=== PATIENT | female | born 1960 | race Caucasian/White ===

== ENCOUNTER 2017-06-30 17:36 | Emergency (ER) | payer BC ==
[2017-06-30 17:46] VITALS: BP 140/96
--- OUTSIDE RECORDS SUMMARY | 2017-06-30 18:00 | XMS REPORT ---
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 [address] [place] [id number] Medigap Part B Effective: Policy Number: [employer] Roxana Mcguire 04/29/2016 [id number] Group Name: Essential Plan 2 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 Cigarette Use Never Smoked Cigarettes ETOH Use Currently consumes alcohol 7-10 large glasses of wine weekly, about 1/2 bottle nightly Recreational Drug Use Never Used Drugs Exercise Type/Frequency Yoga Allergies, Adverse Reactions, Alerts Date Description Reaction Status Severity Comments 06/24/2016 NKDA active Medications Medication Date Status Form Strength Qnty SIG Indications Ordering Provider Methimazole Active Tablets 5mg 90tabs 3 tab by Kaiser 8 mouth [place], daily Vitamin C Active Unknown 0 Methimazole Hx Tablets 5mg 3 tab by Kaiser 5 - mouth [place], daily 6 Medications Administered in Office Medication Date Status Form Strength Qnty SIG Indications Ordering Provider TB,Intradermal Administered Injection Lab and (PPD, [place]) 018 Office Services Immunizations CPT Code Status Date Vaccine Lot # [id number] Refused 06/24/2016 Tdap (Adacel) [id number] Refused 06/24/2016 Influenza Virus Vaccine, 3 Yrs And Above Vital Signs Date Vital Result Comment 06/10/2017 Weight 127.00 lb Weight in kg's 57.607 BP Systolic 116 mmHg BP Diastolic 78 mmHg Heart Rate 64 /min Body Temperature 98.4 F Respiratory Rate 16 /min O2 % BldC Oximetry 98 % 06/24/2016 Weight 121.00 lb Weight in kg's 54.886 BP Systolic 120 mmHg BP Diastolic 68 mmHg Heart Rate 84 /min Body Temperature 98.4 F Respiratory Rate 20 /min Height 64 inches 5'4" BMI (Body Mass Index) 20.8 kg/m2 01/29/2016 Weight 134.00 lb Weight in kg's 60.782 BP Systolic 118 mmHg BP Diastolic 66 mmHg Heart Rate 76 /min Body Temperature 97.9 F Respiratory Rate 16 /min Height 64.5 inches 5'4.50" BMI (Body Mass Index) 22.6 kg/m2 07/01/2015 Weight 143.00 lb Weight in kg's 64.865 BP Systolic 116 mmHg BP Diastolic 70 mmHg Heart Rate 68 /min Body Temperature 97.5 F 12/31/2014 Weight 150.00 lb Weight in kg's 68.040 BP Systolic 110 mmHg BP Diastolic 68 mmHg Heart Rate 68 /min Height 64.5 inches 5'4.50" BMI (Body Mass Index) 25.3 kg/m2 Results Test Date Test Result H/L Range Note Laboratory test 06/11/2017 Vitamin D Total <pending> finding 25(Oh) Laboratory test 06/11/2017 T3 Total 1.31 ng/mL 0.87-1.78 1 finding Free T4 (Free Thyroxine) 1.53 ng/dL High 0.61-1.12 2 TSH (Thyroid Stim Horm) 0.02 mcIU/mL Low 0.34-5.60 3 Vitamin D Total 25(Oh) 60.9 ng/mL High 20-50 4 Laboratory test finding 02/12/2016 T3 Total 0.79 ng/mL Low 0.87-1.78 Free T4 (Free Thyroxine) 0.97 ng/dL 0.61-1.12 TSH (Thyroid Stimulating Horm) 0.73 mcIU/mL 0.34-5.60 1 [id number] 2 [id number] 3 [id number] 4 [id number] Procedures Description No Information Encounters Type Date Location Provider CPT E/M Dx Office Visit 06/24/2016 2:15p [place] [address] Z00.8 R32 K30 E44.1 E05.00 Office Visit 01/29/2016 2:45p [place] [address] D39.12 E05.00 Office Visit 07/01/2015 10:00a [place] [address] M25.512 Office Visit 12/31/2014 4:00p [place] [address] M54.5 F43.20 E05.00 Plan of Care 06/10/2017 - Kaiser Elliott MDE05.00 Thyrotoxicosis w diffuse goiter w/o thyrotoxic crisisComments:She has always treated this according to her own gut instincts rather than best advice from endocrine. She has restarted her methimazole at what seems to her to be the best dosage. We will check her thyroid levels today.Follow up:ALYSIA for well woman
--- OUTSIDE RECORDS SUMMARY | 2017-06-30 18:00 | XMS REPORT ---
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 [address] [place] [address] Medigap Part B Effective: Policy Number: [employer] Roxana Mcguire 04/29/2016 [id number] Group Name: Essential Plan 2 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 Cigarette Use Never Smoked Cigarettes ETOH Use Currently consumes alcohol 7-10 large glasses of wine weekly, about 1/2 bottle nightly Recreational Drug Use Never Used Drugs Exercise Type/Frequency Yoga Allergies, Adverse Reactions, Alerts Date Description Reaction Status Severity Comments 06/24/2016 NKDA active Medications Medication Date Status Form Strength Qnty SIG Indications Ordering Provider Methimazole 06/29/19 Active Tablets 5mg 240tabs 5 tab by Kaiser 18 mouth [place], daily Vitamin C Active Unknown 00 Methimazole 06/11/19 Hx Tablets 5mg 90tabs 3 tab by Kaiser 18 - mouth [place]aggie, 06/29/19 daily 18 Methimazole 01/03/20 Hx Tablets 5mg 3 tab by Kaiser 15 - mouth Tiburcioetmaggie, 07/01/19 daily MD Zambrano Medications Administered in Office Medication Date Status Form Strength Qnty SIG Indications Ordering Provider TB,Intradermal Administered Injection Lab and (PPD, [place]) 018 Office Services Immunizations CPT Code Status Date Vaccine Lot # [id number] Refused 06/24/2016 Tdap (Adacel) [id number] Refused 06/24/2016 Influenza Virus Vaccine, 3 Yrs And Above Vital Signs Date Vital Result Comment 06/28/2017 Weight 123.00 lb Weight in kg's 55.793 BP Systolic 104 mmHg BP Diastolic 62 mmHg Heart Rate 75 /min Body Temperature 98.4 F Respiratory Rate 15 /min Height 64.5 inches 5'4.50" BMI (Body Mass Index) 20.8 kg/m2 O2 % BldC Oximetry 98 % 06/10/2017 Weight 127.00 lb Weight in kg's [...] (Thyroid Stimulating Horm) 0.73 mcIU/mL 0.34-5.60 1 [id number] 2 [id number] 3 [id number] 4 [id number] Procedures Description No Information Encounters Type Date Location Provider CPT E/M Dx Office Visit 06/10/2017 5:00p [place] [address] E05.00 Office Visit 06/24/2016 2:15p [place] [address] Z00.8 R32 K30 E44.1 E05.00 Office Visit 01/29/2016 2:45p [place] [address] D39.12 E05.00 Office Visit 07/01/2015 10:00a [place] [address] M25.512 Office Visit 12/31/2014 4:00p [place] [address] M54.5 F43.20 E05.00 Plan of Care Future Appointment(s):07/05/2017 9:00 am - Kaiser Elliott MD at Main Ari[place]0106/28/2017 - Kaiser Elliott MDE05.00 Thyrotoxicosis w diffuse goiter w/ o thyrotoxic crisisNew Labs:TSH (Thyroid Stim Horm)Free T4 (Free Thyroxine)T3 TotalThyroid AutoantibodiesComments:she continues to use the medication according to her best judgment. She seems to be averaging about 25 mg of methimazole per day.This could be a reasonable for her relatively mild hyperthyroidism. I tried to convince her that we would be better served by keeping her to a stable dosage of the medication, but she disagrees.She is very interested in alternative explanations for disease-systemic Pia,difficulty "processing vitamins", etc. She believes the [employer] is suppressing research that would cure or prevent most disease. this informs her approach to the treatment of most of her ergjzvxsU16.9 Dermatitis, unspecifiedComments:She has eczema visible, especially on her right calf.She appears alarmed when I mention the possibility of trying topical steroids. we discussed the alternate treatment of just trying to moisturize it and hopefully it will go away.
--- NOTE | 2017-06-30 18:27 | UC ---
Skin Complaint HPI - HPI Summary HPI Summary: 56 yo female with pruritic rash x days getting progressively worse has been weeding a 1 1/2 acre garden recent URI no hx DM - History of Current Complaint Chief Complaint: UCRash Time Seen by Provider: 06/30/17 17:50 Stated Complaint: RASH Hx Obtained From: Patient Onset/Duration: Gradual Onset, Lasting Days Timing: Constant Onset Severity: Mild Current Severity: Moderate Pain Intensity: 0 Pain Scale Used: 0-10 Numeric Location: Other - legs>arms/scalp Character: Swelling, Pruritus, Redness, Raised Aggravating Factor(s): Nothing Alleviating Factor(s): Nothing Associated Signs & Symptoms: Positive: Rash - Allergy/Home Medications Allergies/Adverse Reactions: Allergies Allergy/AdvReac Type Severity Reaction Status Date / Time No Known Allergies Allergy Verified 06/30/17 17:46 Home Medications: Home Medications Methimazole TAB* [Tapazole TAB*] 10 mg PO DAILY 06/30/17 [History Confirmed 04/18] Review of Systems Constitutional: Negative Skin: Rash Eyes: Negative ENT: Negative Respiratory: Negative Cardiovascular: Negative Gastrointestinal: Negative Genitourinary: Negative Motor: Negative Neurovascular: Negative Musculoskeletal: Negative Neurological: Negative Psychological: Negative Is Patient Immunocompromised?: No All Other Systems Reviewed And Are Negative: Yes PMH/Surg Hx/FS Hx/Imm Hx Previously Healthy: Yes Endocrine History: Hyperthyroidism - Surgical History Surgical History: None - Family History Known Family History: Positive: None Negative: Hypertension - Social History Alcohol Use: Rare Substance Use Type: None Smoking Status (MU): Never Smoked Tobacco Physical Exam Triage Information Reviewed: Yes Appearance: Well-Appearing, No Pain Distress, Well-Nourished Vital Signs: Initial Vital Signs Temp 97.9 F 06/30/17 17:40 Pulse 72 06/30/17 17:40 Resp 12 06/30/17 17:40 BP 140/96 06/30/17 17:40 Pulse Ox 100 06/30/17 17:40 Vital Signs Reviewed: Yes Eyes: Positive: Conjunctiva Clear ENT: Positive: Hearing grossly normal. Negative: Nasal congestion, Nasal drainage, Trismus, Muffled voice, Hoarse voice Neck: Positive: Supple, Nontender Respiratory: Positive: Lungs clear, Normal breath sounds, No respiratory distress, No accessory muscle use Cardiovascular: Positive: RRR, No Murmur Musculoskeletal: Positive: ROM Intact, No Edema Neurological: Positive: Alert Psychological Exam: Normal Skin: Positive: rashes - c/w contact dermatitis, multiple papules, some in linear arrays, generalized erthema /swelling post legs weeping serum Course/Dx - Diagnoses Provider Diagnoses: contact dermatitis Discharge - Sign-Out/Discharge Documenting (check all that apply): Discharge/Admit/Transfer - Discharge Plan Condition: Stable Disposition: HOME Patient Education Materials: Contact Dermatitis (DC) Referrals: Kaiser Elliott MD [Primary Care Provider] - If Needed - Billing Disposition and Condition Condition: STABLE Disposition: HOME Images Front/Back of Body, Lg ([place]): 1 - weeping 2 - weeping 3 - weeping 4 - weeping
[2017-06-30] MEDS ORDERED: predniSONE TAB* 20 MG PO ONE (18:32)
[2017-06-30] MEDS ORDERED: Triamcinolone Acetonide* 40 MG/ML 1 ML VIAL IM ONE (18:32)
== END 2017-06-30 19:08 | disposition home or self-care (01) ==
LOC: UCEAST 17:36
DX: L25.9 Unspecified contact dermatitis, unspecified cause (principal); E05.90 Thyrotoxicosis, unspecified without thyrotoxic crisis or storm
CPT/HCPCS: 96372; 99212; G0463; J3301; J7512